=== PATIENT | female | born 1970 | race Caucasian/White ===

== ENCOUNTER → 2021-04-17 16:50 | Outpatient (CLI) | payer BC, SELFPAY | PROVIDERS: Visit Provider Nurse Practitioner | DX: Z20.822 Contact with and (suspected) exposure to COVID-19 (principal) | CPT/HCPCS: C9803; U0003; U0005 ==

== ENCOUNTER 2021-04-18 08:55 | Day surgery (SDC) | payer BC, SELFPAY ==
[2021-04-17 12:54] VITALS: BMI 23.0
[2021-04-18 09:08] VITALS: BP 133/82; PULSE 72; RESP 16; TEMP 36.4; O2SAT 99
[2021-04-18 09:36] VITALS: BP 132/81; PULSE 68; RESP 18; TEMP 36.4; O2SAT 97
[2021-04-18 09:42] VITALS: BP 132/81; PULSE 68; RESP 18; TEMP 36.4; O2SAT 97
== END 2021-04-18 09:42 | disposition home or self-care (01) ==
LOC: OUTP 09:01
PROVIDERS: Visit Provider Ophthalmology
PROC: (CPT 66821; principal; 2021-04-18 09:30)
DX: H26.491 Other secondary cataract, right eye (principal); Z96.1 Presence of intraocular lens; H50.111 Monocular exotropia, right eye; H50.21 Vertical strabismus, right eye; Z88.8 Allergy status to other drugs, medicaments and biological substances
CPT/HCPCS: 66821

== ENCOUNTER 2024-10-14 07:38 | Emergency (ER) | payer OTHER, BC, SELFPAY ==
[2024-10-14] VITALS (12 sets, daily range): BP systolic 132–169; BP diastolic 81–128; PULSE 62–80; RESP 16–17; TEMP 37.2; O2SAT 97–99; BMI 23.8
--- NOTE | 2024-10-14 07:50 | XR_ITS ---
FINAL REPORT CLINICAL HISTORY: post op infx FINDINGS: LEFT HAND Three views were obtained. There is no fracture or dislocation. The joint spaces appear normal. The is prominent soft tissue swelling over the dorsum of the hand measuring 1.6 cm. No gas is seen in the soft tissues. IMPRESSION: Prominent soft tissue swelling without acute bony abnormality. Reviewed, Interpreted and Dictated by Mj Hartley MD Transcribed by Tala Ellis Authenticated and [facility]
--- OUTSIDE RECORDS SUMMARY | 2024-10-14 07:55 | XMS_ITS | Encounter Summary ---
Author Organization [facility] Address [address] [place] [address] Phone [email or web address] [email or web address] Care Team Providers Care Junior Architect Name Role Phone Jose Garcia DO Primary Care Provider Encounter Details Date Type Department Care Team (Late st Contact Info) Description 10/09/2024 Telephone [facility] 1 [facility], [facility] 1 [place] [address] Raven Monroy, RN [address] [address] Social History Tobacco Use Types Packs/Day Years Used Date Smoking Tobacco: Former Smokeless Tobacco: Never Intimate Partner Violence Answer Date R ecorded Insults You Not on file 08/16/2020 Threatens You Not on file 08/16/2020 Screams at You Not on file 08/16/2020 Physically Hurt Not on file 08/16/2020 Intimate Partner Violence Score Not on file 08/16/2020 Depression Answer Date Recorded PHQ Total Score 0 12/25/2023 Stress Answer Date Recorded Stress in your Life Not on file 03/07/2024 Dealing with Stress 3 03/07/2024 Comments No Sex and Gender Information Value Date Recorded Sex Assigned at Not on file Legal Sex Female 7:42 AM CDT Gender Identity Not on file Sexual Orientation Not on file documented as of this encounter Miscellaneous Notes * Telephone Encounter - Raven Monroy - 10/12/2024 1:56 PM CDT Nurse manager retention note for follow up call. 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 Hand/wrist Dx: Pain-M25.539; Idiopathic osteoarthritis-M19.91; Synovitis Lt. Wrist-M65.832 Date of Injury: 11/04/23, reported 12/25/23 Surgery: Yes Post-Op Details: Arthroscopic surgery, no paperwork provided. Current plan of care: TM sent home until released by specialist Surgery date: 10/08/24, Surgeon: Dr. Ramirez, Procedure: Arthroscopy Lt/ wrist Plan of care per specialist: pending paperwork Clinic Provider: Dr. George [phone] F/U Call Notes: TM has ignored phone call messages but did reply to email sent. Adjustor provided Last Specialist Visit: 09/09/24 Next Specialist Visit: 10/21/24 Sports Official Plan/Goals: Call after next specialist visit and as needed Notes requested from specialist's office Continue following plan of care per specialist Conclusion: -E-mail sent to TM with watch caserlegal department manager info. -TM to call back with updates and changes or as needed. -E-mail sent to worker's comp rep regarding: lack of information and contact with TM.. Sports Official Signature: Raven Monroy Date: 10/12/24 documented in this encounter Plan of Treatment Not on file documented as of this encounter Visit Diagnoses Not on filedocumented in this encounter Care Teams Junior Architect Relationship Specialty Start Date End Date Jose Garcia DO [address] [facility] [address] [place] [address] PCP - General Facility Supervisor 02/16/20 documented as of this encounter
--- OUTSIDE RECORDS SUMMARY | 2024-10-14 07:55 | XMS_ITS | Encounter Summary ---
Author Organization [facility] Address [address] [place] [address] Phone [email or web address] [email or web address] Care Team Providers Care Sorter Lumber Straightener Name Role Phone Jose Garcia DO Primary Care Provider Reason for Visit * Reason Onset Date Comments Care Coordination 10/13/2024 Op Note/Dr. Jet burrell Encounter Details Date Type Department Care Team (Late st Contact Info) Description 10/13/2024 Documentation [facility] 1 [facility] 1 [place] [address] Raven Monroy, RN [address] [address] Social History Tobacco Use Types [...] on file documented as of this encounter Progress Notes * Raven Monroy - 10/13/2024 11:09 AM CDT Recvd. Op note+ work status from surgery, from [facility]. Uploaded into [employer]. documented in this encounter Plan of Treatment Not on file documented as of this encounter Visit Diagnoses Not on filedocumented in this encounter Care Teams Sorter Lumber Straightener Relationship Specialty Start Date End Date Jose Garcia DO [address] [facility] [address] [place] [address] PCP - General Manugrapher 02/16/20 documented as of this encounter
--- OUTSIDE RECORDS SUMMARY | 2024-10-14 07:55 | XMS_ITS | Encounter Summary ---
Author Organization [facility] Address [address] [place] [address] Phone [email or web address] [email or web address] Care Team Providers Care Biostatistics Manager Name Role Phone Jose Garcia DO Primary Care Provider Reason for Visit * Reason Onset Date Comments Return to Work / Duty 10/07/2024 CASE UPDAT E/COMMUNICATION- WMLOA-S/P Encounter Details Date Type Department Care Team (Late st Contact Info) Description 10/07/2024 Documentation [facility] [address] [place] [address] [place], [place] [address] [place] [address] Social History Tobacco Use Types Packs/Day Years [...] as of this encounter Progress Notes * Olivia Koroma MA - 10/07/2024 12:42 PM EDT TM on WMLOA beginning 10.08.2024- Stated she was having surgery on LEFT HAND/WRIST Case #[id number] DOI - 12.24.2023 documented in this encounter Plan of Treatment Not on file documented as of this encounter Visit Diagnoses Not on filedocumented in this encounter Care Teams Biostatistics Manager Relationship Specialty Start Date End Date Jose Garcia DO [address] [place] [address] PCP - General New Business Clerk 02/16/20 documented as of this encounter
--- OUTSIDE RECORDS SUMMARY | 2024-10-14 07:55 | XMS_ITS | Continuity of Care Document ---
Author Organization [facility] Address [address] [place] [address] Care Team Providers Care Research Assoc Name Role Phone SHERON MURDOCK Primary Care Provider JENNIFER ANGELO [employer] Supervisor Assessment No assessment recorded. Plan of Treatment Reminders Order Date Submit Date Provider Last Modified By Organization Details Last Modified Time Details Appointments POST OP GLOBAL 2024 09:45A M MARINA EISENBERG MD Not available Not available Not available Lab None recorded . Referral None recorded . Procedures None recorded . Surgeries None recorded . Imaging None recorded . Medication Orders None recorded . Patient TargetsNo targets recorded. Patient InstructionsNo instructions recorded. Reason for Referral None Reported. Problems No Known Problems Procedures Surgical History Date Name Laterality Status Provider Name and Address Organization Details Recorded Time 10/09/19 25 Op Note completed MARINA EISENBERG MD [facility] [place], [address], [facility] 10/08/2024 12:48:37 08/20/19 25 Injection Joint/Bursa, Interm completed MARINA EISENBERG MD [address] [place], [address], [facility] 08/19/2024 09:10:26 02/24/20 24 Injection Joint/Bursa, Interm completed Ney Chambers [facility] 03/23/2024 13:45:00 09/12/19 24 Destruction Premalignant Lesion(s) cancelled [facility] 09/12/2023 12:13:53 09/12/19 24 Destruction BN Lesions cancelled [facility] 09/12/2023 12:16:46 08/27/19 24 EKG completed SHERON MURDOCK , [address] [place], [address], [facility] 08/27/2023 15:32:18 08/02/19 24 Destruction Premalignant Lesion(s) completed [facility] 08/02/2023 14:19:31 08/02/19 24 Destruction BN Lesions completed [facility] 08/02/2023 14:19:07 Imaging Results None recorded. Procedure Notes None recorded. Medical Equipment None Reported. Allergies Allergen ID Allergen Name Allergen Category Reaction Reaction Severity Criticality Documentation Date Start Date Code Code System Note Provider Name and Address Organization Details Recorded Time 352577 Wellbutri n medicatio n hives Not available Not available 08/07/2021 93684 [facility] Medications Name Sig Start Date Stop Date Status Note LastModified by Organization Details LastModified Time medroxypro gesterone 10 mg tablet 07/31 completed Not Available Not Available Not Available prednisone 10 mg tablet TAKE 4 TABLETS BY MOUTH ONCE DAILY FOR 2 DAYS , 3 TABLETS ONCE DAILY FOR 2 DAYS, 2 TABLETS ONCE DAILY FOR 2 DAYS, 1 TABLETS ONCE DAILY FOR 2 DAYS 08/19 completed Not Available Not Available Not Available azithromyc in 250 mg tablet TAKE 2 TABLETS (500 MG) BY ORAL ROUTE ONCE DAILY FOR 1 DAY THEN 1 TABLET (250 MG) BY ORAL ROUTE ONCE DAILY FOR 4 DAYS 10/13 completed Not Available Not Available Not Available hydrocodon e 5 mg-acetami nophen 325 mg tablet TAKE 1 TAB PO Q 6 HRS PRN FOR SEVERE POST SURGICAL PAIN 2024 active Not Available Not Available Not Avai lable tretinoin 0.05 % topical cream APPLY PEA-SIZE D AMOUNT OF CREAM TO AFFECTED AREA OF FACE AT NIGHT 07/31 completed Not Available Not Available Not Available sulfametho xazole 800 mg-trimeth oprim 160 mg tablet TAKE 1 TABLET BY MOUTH TWICE DAILY FOR 5 DAYS 08/07 completed Not Available Not Available Not Available tramadol 50 mg tablet TAKE 1 TABLET BY MOUTH EVERY 4 TO 6 HOURS NEEDED 07/31 completed Not Available Not Available Not Available prednisone 10 mg tablets in a dose pack Take by oral route. 10/13 completed Not Available Not Available Not Available meloxicam 7.5 mg tablet TAKE 1 TAB PO QD WITH FOOD REGARDLE SS OF PAIL LEVEL FOR 1 WEEK, THEN TAKE ONLY PRN FOR PAIN RELIEF THEREAFT ER 2024 active Not Available Not Available Not Avai lable oxycodone- acetaminop hen 5 mg-325 mg tablet Take 1 tablet every 4-6 hours by oral route as needed. 07/31 completed Not Available Not Available Not Available alprazolam 0.5 mg tablet 08/07 completed Not Available Not Available Not Available methotrexa te sodium 2.5 mg tablet TAKE 6 TABLETS BY MOUTH ONCE A WEEK active Not Available Not Available No t Available phenazopyr idine 100 mg tablet TAKE 2 TABLETS BY MOUTH THREE TIMES DAILY AFTER A MEAL FOR 2 DAYS 08/07 completed Not Available Not Available Not Available benzonatat e 100 mg capsule TAKE 1 TO 2 CAPSULES BY MOUTH THREE TIMES DAILY NEEDED FOR COUGH 08/26 completed Not Available Not Available Not Available doxycyclin e monohydrat e 100 mg capsule Take 1 capsule twice a day by oral route. 07/31 completed Not Available Not Available Not Available cephalexin 500 mg capsule TAKE 1 CAPSULE BY MOUTH 4 TIMES DAILY 07/31 completed Not Available Not Available Not Available erythromyc in 5 mg/gram (0.5 %) eye ointment 08/07 completed Not Available Not Available Not Available Neurontin 100 mg capsule TAKE 1 CAPSULE PO QHS FOR 1 WEEK 2024 active Not Available Not Available Not Avai lable folic acid 1 mg tablet TAKE 1 TABLET BY MOUTH ONCE DAILY active Not Available Not Available No t Available hydrocorti sone 2.5 % topical cream APPLY A THIN LAYER TO AFFECTED AREA(S) TWICE DAILY active PRN Not Available Not Available No t Available lisinopril 5 mg tablet TAKE 1 TABLET BY MOUTH ONCE DAILY 04/06 completed not taking Not Available Not Available Not Available clobetasol 0.05 % topical ointment APPLY OINTMENT TOPICALL Y TWICE DAILY TO AFFECTED AREA FOR 2 WEEKS .AVOID FACE, GROIN, OR AXILLA. 03/28 /2024 completed Not Available Not Available Not Available prednisone 5 mg tablets in a dose pack TAKE 6 TABLETS ON DAY 1 THEN TAKE 5 TABLETS ON DAY 2 THEN TAKE 4 TABLETS ON DAY 3 THEN TAKE 3 TABLETS ON DAY 4 THEN TAKE 2 TABLETS ON DAY 5 THEN TAKE 1 TABLET ON DAY 6. TAKE ALL DOSES WITH FOOD. 08/26 completed Not Available Not Available Not Available methylpred nisolone 4 mg tablets in a dose pack DIRECTED 10/13 completed Not Available Not Available Not Available albuterol sulfate HFA 90 mcg/actuat ion aerosol inhaler INHALE 1 TO 2 PUFFS BY MOUTH EVERY 4 TO 6 HOURS NEEDED FOR SHORTNES S OF BREATH OR WHEEZING 08/26 completed Not Available Not Available Not Available ondansetro n 4 mg disintegra ting tablet Place 1 tablet every 8 hours by translin gual route as needed. 07/31 completed Not Available Not Available Not Available diazepam 5 mg tablet TAKE ONE TABLET BY MOUTH ONCE FOR PROCEDUR E 07/31 completed Not Available Not Available Not Available cyclobenza carlos 5 mg tablet Take 1 tablet 3 times a day by oral route. 07/31 completed Not Available Not Available Not Available nitrofuran toin monohydrat e/macrocry stals 100 mg capsule 08/07 completed Not Available Not Available Not Available IBU over the counter prn active Not Available Not Available No t Available ferrous gluconate 324 mg (38 mg iron) tablet 07/31 completed Not Available Not Available Not Available Trelegy Ellipta 100 mcg-62.5 mcg-25 mcg powder for inhalation INHALE 1 PUFF BY MOUTH ONCE DAILY active Not Available Not Available No t Available Plenvu 140 gram-9 gram-5.2 gram powder packs TAKE DIRECTED PER INSTRUCT IONS GIVEN TO YOU FOR YOUR COLONOSC OPY 07/31 completed Not Available Not Available Not Available Vitals None Recorded Social History Question Answer Notes LastModified by Organizat ion Details LastModified Time Tobacco Smoking Status Former Smoker 6 years Preethi Mccollum [facility] 08/07/2021 09:04:25 What Was The Date Of Your Most Recent Tobacco Screening? 10/14/2023 [email or web address] Information not available 10/14/2023 Sex: Female Functional Status None recorded. Mental Status None recorded. Family History Nothing Reported. Medical History No medical history recorded. Gynecological HistoryNo gynecological history recorded. Obstetrics History GPAL:G 0 P 0 0 0 0 Immunizations Vaccine Type Date Status Note Provider Nam e and Address Organization Details Recorded Time Influenza, split virus, quadrivalent, preservative 1 completed Ofelia Barahona [facility] 08/01/2023 16:01:18 Past Encounters Encounter ID Performer Location Encounter Start Date Encounter Closed Date Diagnosis/Indication Diagnosis SNOMED-CT Code Diagnosis ICD10 Code Diagnosis Note [id number] MARINA EISENBERG MD [facility] [address] [place] [address] 09/09/2024 14:34:43 09/09/2024 15:21:35 Synovitis of joint of left wrist [id number] 53871 M65.832 - Plan arthroscop ic synovectom y, excision of pisiform - Send specimen to assess for rheumatoid arthritis - 6-8 weeks recovery, work hardening program potentiall y needed - Surgical consent discussed and given Idiopathic osteoarthritis 666079725 M19.91 - Educated on osteoarthr itis management post-op - Surgery chosen due to failed injections - Continue lifestyle activities post-proce dure [id number] MARINA EISENBERG MD SURGERY SCHEDULE [address] [place] [address] 10/08/2024 08:57:46 10/08/2024 08:58:26 Health Concerns Section Related Observation LastModified by Organization Detai ls LastModified Time None Recorded Concern Status LastModified by Organization Details LastModified Time None Recorded Payers Encounter Date Sequence Insurance Name Policy Number Policy Hammond Covered Member ID Hammond Member ID Guarantor Name 10/08/2024 [employer] Margie Taya Hammond OBGyn Episode No OBEpisode recorded.
--- OUTSIDE RECORDS SUMMARY | 2024-10-14 07:55 | XMS_ITS | Continuity of Care Document ---
Author Organization [facility], ORTHOPEDICS [address] [place] [address] Care Team Providers Care Hay Stacker Name Role Phone COLLETTE SHERON Primary Care Provider JENNIFER ANGELO Yard Manager Assessment Encounter Date Assessment Date Assessment LastModified by Organization Details LastModified Time 09/09/2024 09/09/2024 - 53-year-old female with history of idiopathic osteoarthritis presenting with left wrist pain and swelling. - Symptoms aligned with repetitive wrist movements at work. 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 - MRI indicates inflammatory changes correlating with synovitis. - Imaging: Previous MRI indicated inflammatory changes, no significant tears observed. [email or web address] Not available 09/09/2024 15:16:24 Plan of Treatment Reminders Order Date Submit Date Provider Last Modified By Organization Details Last Modified Time Details Appointments POST OP GLOBAL 2024 09:45A Starla EISENBERG MD Not available Not available Not available Lab None recorded . Referral None recorded . Procedures None recorded . Surgeries None recorded . Imaging None recorded . Medication Orders None recorded . Patient TargetsNo targets recorded. Patient Instructions Encounter Date Encounter Id Patient Instructions Last Modified By Organization Details Last Modified Time 09/09/2024 [id number] - Prepare for wrist arthroscopic surgery. - Rest wrist, avoid repetitive movements. - Follow post-op care instructions strictly. - Report any increase in pain, swelling, or redness immediately. - Maintain normal activities as advised after surgery to avoid stiffness. [email or web address] Not available 09/09/2024 15:16:26 Reason for Referral None Reported. Problems No Known Problems Procedures Surgical History Date Name Laterality Status Provider Name and Address Organization Details Recorded Time 10/09/19 25 Op Note completed MARINA EISENBERG MD [address] [place], [address], [facility] 10/08/2024 12:48:37 08/20/19 25 Injection Joint/Bursa, Interm completed MARINA EISENBERG MD [address] [place], [address], [facility] 08/19/2024 09:10:26 02/24/20 24 Injection Joint/Bursa, Interm completed Ney Chambers [facility] 03/23/2024 13:45:00 09/12/19 24 Destruction Premalignant Lesion(s) cancelled [facility] 09/12/2023 12:13:53 09/12/19 24 Destruction BN Lesions cancelled [facility] 09/12/2023 12:16:46 08/27/19 24 EKG completed SHERON GARCIA DO [address] [place], [address], [facility] 08/27/2023 15:32:18 08/02/19 24 Destruction Premalignant Lesion(s) completed [facility] 08/02/2023 14:19:31 08/02/19 24 Destruction BN Lesions completed [facility] 08/02/2023 14:19:07 Imaging Results None recorded. Procedure Notes None recorded. Medical Equipment None Reported. Allergies Allergen ID Allergen Name Allergen Category Reaction Reaction Severity Criticality Documentation Date Start Date Code Code System Note Provider Name and Address Organization Details Recorded Time 728075 Wellbutri n medicatio n hives Not available Not available 08/07/2021 01810 [facility] Medications Name Sig Start Date Stop [...] 2 WEEKS .AVOID FACE, GROIN, OR AXILLA. 07/31 completed Not Available Not Available Not [...] Not Available Not Available Not Available Vitals Date Recorded Body height Body mass index (BMI) Body weight Provider Name and Address Organization Details Last Updated DateTime 09/09/2024 160.02 cm 23 kg/m2 10896.01 g Kayy Jerzy [facility] 09/09/2024 14:45:41 Social History Question Answer Notes LastModified by Organizat ion Details LastModified Time Tobacco Smoking Status Former Smoker 6 years Preethi Chun [facility] 08/07/2021 09:04:25 What Was The Date [...] Recorded Time Influenza, split virus, quadrivalent, preservative completed Ofeliachelsy Barahona [facility] 08/01/2023 16:01:18 Past Encounters Encounter ID Performer Location Encounter Start Date Encounter Closed Date Diagnosis/Indication Diagnosis SNOMED-CT Code Diagnosis ICD10 Code Diagnosis Note [id number] MARINA EISENBERG MD [facility] [address] [address] 08/19/2024 08:53:38 08/19/2024 09:14:06 Synovitis of joint of left wrist [id number] 42194 M65.832 - Administer corticoste roid injection at pizotrique tral joint. - Consider pisiform removal surgery if symptoms persist. - Monitor response to injection. Idiopathic osteoarthritis 275547102 M19.91 - Symptomati c management . - Monitor response and joint function. [id number] MARINA EISENBERG MD [facility] [address] [place] [address] 09/09/2024 14:34:43 09/09/2024 15:21:35 Synovitis of joint of left wrist 1122927498 95110 M65.832 - Plan arthroscop ic synovectom y, excision of pisiform - Send specimen to assess for rheumatoid arthritis - 6-8 weeks recovery, work hardening program potentiall y needed - Surgical consent discussed and given Idiopathic osteoarthritis 502380273 M19.91 - Educated on osteoarthr itis management post-op - Surgery chosen due to failed injections - Continue lifestyle activities post-proce dure Health Concerns Section Related Observation LastModified by Organization Detai ls LastModified Time None Recorded Concern Status LastModified by Organization Details LastModified Time None Recorded Payers Encounter Date Sequence Insurance Name Policy Number Policy Hammond Covered Member ID Hammond Member ID Guarantor Name 09/09/2024 [facility] Margie Bain Hammond Notes Date Note Type Note Provider Name and Address Organization Details Recorded Time 09/09/2024 text/html Consult requeste d by: [facility] Physician: Dr. Sheron Garcia Hand dominance: RightLocation: Left Wrist Pain level: 0 1 2 3 4 5 6 7 8 9 10 4+ /10 Date of injury: 4Duration: 8.5 months Recent Surgery: NoProcedure:Date of surgery:Surgeon(If Known): In office procedure? Yes- Left Pisotriquetral joint CSI: 08/20/2023- Left wrist csi: 02/24/2024 Previous upper extremity surgery? YesProcedure: Left carpal tunnelApproximate date of surgery: 2001Surgeon (if known): O' Babar Procedure: bilateral thumb trigger finger releasesDate of surgery: 2017Surgeon(If Known): O'Babar Procedure: right ring and long trigger finger releasesDate of surgery: 2013Surgeon(If Known): O'Babar Procedure: Right index finger (unsure of procedure - but does have bone graft)Date of surgery: 2017Surgeon(If Known): O'Babar Have you or an immediate family member ever seen our hand surgeons before? 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 Yes on restrictions-no use of the left handIs this injury associated with a Workers Compensation claim? Yes Patient arrived in: cast splint surgical dressing OTC brace n/a Construction Controller Strength: right: left: W.C. Ms. Hammond is here for a recheck of her lt wrist. She received an injection at her last visit. She says the injection did not help at all, she could not tell any improvement. She says the wrist stays swollen all the time.- The patient is a 53-year-old female presenting with left wrist pain and swelling. - Pain mimics carpal tunnel but is majorly localized to the pisiform area. - Daily activities are limited, with reliance on one-handed function. - Repetitive use and holding the arm down worsen swelling. - Previous shoulder surgeries noted as less debilitating than current wrist issue. - No improvement post corticosteroid injection. - MRI indicated inflammation without significant tears. MARINA EISENBERG MD [address] [place], [address], [facility] 09/09/2024 16:43:54 OBGyn Episode No OBEpisode recorded.
--- OUTSIDE RECORDS SUMMARY | 2024-10-14 07:55 | XMS_ITS | Encounter Summary ---
Author Organization [facility] Address [address] [place] [phone] Phone [email or web address] Care Team Providers Care Cementing Bulk Material Operator Name Role Phone Jose Garcia DO Primary Care Provider Reason for Visit * Reason Onset Date Comments Care Coordination 10/09/2024 Dr. Ramirez re questing surgery but no approval received to date. Encounter Details Date Type Department Care Team (Late st Contact Info) Description 10/09/2024 Telephone [facility] 1 [facility], [facility] 1 [place] [address] Raven Monroy, RN [address] [address] Social History Tobacco Use Types [...] * Telephone Encounter - Raven Monroy - 10/09/2024 12:01 PM CDT Attempted to call TM but no answer, No voicemail. Will send email to contact CM. Will also send email to adjustor for information. documented in this encounter Plan of Treatment Not on file documented as of this encounter Visit Diagnoses Not on filedocumented in this encounter Care Teams Cementing Bulk Material Operator Relationship Specialty Start Date End Date Jose Garcia DO 113[address] [facility] [address] [place] [address] PCP - General Director Of Convention Services 02/16/20 documented as of this encounter
--- OUTSIDE RECORDS SUMMARY | 2024-10-14 07:55 | XMS_ITS | Encounter Summary ---
Author Organization [facility] Address [address] [place] [phone] Phone [email or web address] Care Team Providers Care Rope Coiling Machine Operator Name Role Phone Jose Garcia DO Primary Care Provider Reason for Visit * Reason Onset Date Comments Return to Work / Duty 10/02/2024 CASE UPDAT E/COMMUNICATION- MSIG- A Encounter Details Date Type Department Care Team (Late st Contact Info) Description 10/02/[address] [place] [address] Olivia Koroma MA [address] [place] [address] Social History Tobacco Use Types [...] Progress Notes * Olivia Koroma MA - 10/02/2024 12:25 PM EDT Received APPROVAL from [facility] for WRIST DOI - 12.24.2023 CLAIM # [id number] Adjustor- Chayo Mojica documented in this encounter Plan of Treatment Not on file documented as of this encounter Visit Diagnoses Not on filedocumented in this encounter Care Teams Rope Coiling Machine Operator Relationship Specialty Start Date End Date Jose Garcia DO 113[address] [facility] [address] [place] [address] PCP - General Feeder Driver 02/16/20 documented as of this encounter
--- OUTSIDE RECORDS SUMMARY | 2024-10-14 07:55 | XMS_ITS | Clinical Summary ---
Author Organization [facility] Address [address] [place] [phone] Phone [email or web address] Care Team Providers Care Speech Language Pathologist Name Role Phone Jose Garcia DO Primary Care Provider Allergies Active Allergy Reactions Criticality Noted Date Comments Aspirin GI intolerance 07/17/2018 Bupropion Rash Low 07/17/2018 Medications ibuprofen (MOTRIN) 200 MG tablet Take 200 mg by mouth every 6 (six) hours if needed for mild pain. Active Trelegy Ellipta 100-62.5-25 MCG/ACT aerosol powder Inhale 1 puff. 07/23/2024 Active ibuprofen (IBU) 400 MG tablet over the counter prn Active methotrexate 2.5 MG tablet Take 15 mg by mouth every 7 (seven) days. 08/19/2024 Active folic acid (FOLVITE) 1 MG tablet Take 1 mg by mouth once daily as needed. 08/19/2024 Active Active Problems Problem Noted Date Diagnosed Date Carpal tunnel syndrome 03/07/2015 Overview (10/02/2017): Acute sinusitis 04/09/2011 Overview (10/02/2017): Laboratory exam ordered as p art of routine general medical examination 01/25/2011 Overview (10/02/2017): Contact dermatitis and other eczema due to other specified agent 2010 Overview (10/02/2017): Superficial injury of cornea 08/31/2010 Overview (10/02/2017): Chest pain 08/14/2010 Overview (10/02/2017): Acute cystitis 12/27/2009 Overview (10/02/2017): Pain in joint, pelvic region and thigh 0 Overview (10/02/2017): Routine general medical exam ination at a health care facility 02/22/2009 Overview (10/02/2017): Cough 02/18/2009 Overview (10/02/2017): Encounter for fitness for duty examination 02/17 Overview (10/02/2017): Contusion of scalp, face, or neck, excluding eye s 12/12/2007 Overview (10/02/2017): Other examination of ears and hearing 10/08/2007 Overview (10/02/2017): Urinary tract infection 09/01/2007 Overview (10/02/2017): Superficial foreign body of finger without major open wound and without infection 08/01/2007 Overview (10/02/2017): Pain in or around eye 04/18/2007 Overview (10/02/2017): Trigger thumb, right thumb Encounters Date Type Department Care Team Description 10/13/2024 Documentation [facility] [address] [place] 1 [place] [phone] Raven Monroy, MANPREET 10/09/2024 Telephone [facility] [address] [place] [place] [phone] Raven Monroy, RN 10/09/2024 Telephone [facility] [address] [place] [place] [address] Raven Monroy, MANPREET 10/07/2024 Documentation [facility] [place] [address] [place] 10/02/[address] [place] [address] [place], [place] 08/14/2024 Documentation [place] [address] [facility] [place] [address] Crystal Sarmiento RN 08/13/2024 Documentation [place] [address] [facility] [place] [address] China Lomeli RN 08/13/[address] [place] [address] China Lomeli, RN from Last 3 Months Immunizations Immunization Administration Dates Next Due Td, adsorbed, PF, adult, Lf, unspecified (CVX-19 6) 08/01/2007 Social History Tobacco Use Types Packs/Day Years Used Date Smoking Tobacco: Former Smokeless Tobacco: Never Tobacco Cessation:Counseling Given: Not Answered Intimate Partner Violence Answer Date R ecorded [...] on file Sexual Orientation Not on file Last Filed Vital Signs Vital Sign Reading Time Taken Comments Blood Pressure 116/74 09/10/2024 8:37 AM EDT Pulse 66 09/10/2024 8:37 AM EDT Temperature 36.7 C (98.1 F) 04/07/2024 8:38 AM EST Respiratory Rate 18 09/10/2024 8:37 AM EDT Oxygen Saturation 97% 09/10/2024 8:37 AM EDT Inhaled Oxygen Concentration - - Weight 61.2 kg (135 lb) 12/25/2023 1:06 PM EDT Height 160 cm (5' 3 ) 12/25/2023 1:06 PM EDT Body Mass Index 23.91 12/25/2023 1:06 PM EDT Plan of Treatment Health Maintenance Due Date Last Done Comments Dental Cleaning/Exam 1968 HIV Screening 1968 Hepatitis C Screening 1968 Cervical Cancer Screening 1984 Annual Preventive Exam 1986 Hep B Infection Screening - Triple Screen 1986 Hepatitis B Immunization (1 of 3 - 19+ 3-dose series) 11/04/1987 Tetanus Diphtheria and Pertu ssis Immunization (1 - Tdap) 11/04/1987 Breast Cancer Screening 1998 Colorectal Cancer Screening 1998 Zoster Immunization (1 of 2) 2018 Covid-19 Immunization (1 - 2 25 season) 2024 Influenza Immunization (Seas on Ended) 2025 02/21/2021 HIB Immunization Aged Out No longer e ligible based on patient's age to complete this topic HPV Immunization Aged Out No longer e ligible based on patient's age to complete this topic Hepatitis A Immunization Aged Out No longer eligible based on patient's age to complete this topic Pneumococcal: Ped (0 to 5 Yr s) and At-Risk Member (6 to 64 Yrs) Aged Out No longer e ligible based on patient's age to complete this topic Polio Immunization Aged Out No longer eligible based on patient's age to complete this topic Insurance OPT OUT NO COPAY NB Care Teams Speech Language Pathologist Relationship Specialty Start Date End Date Jose Garcia DO [address] [place] [address] PCP - General Senior Teller 02/16/20
--- NOTE | 2024-10-14 08:03 | ED_ITS ---
Discharge Plan Disposition Patient Disposition: Home, Self-Care Prescriptions Prescriptions: No Action No Known Home Medications Referrals Follow up/Referrals: Provider,Referral, [Primary Care Provider, Medical] - See instructions Clinical Impressions Clinical Impression: Cellulitis of hand, left, Post-operative infection Print Language Print Language: Scottish Discharge ED Provider: Sarah Wang General Adult HPI General Chief complaint: PAIN Stated complaint: surg last , left hand swollen Time Seen by Provider: 10/14/24 07:40 History of Present Illness HPI narrative: Patient is a 53-year-old female presenting today with what she believes to be a postoperative infection. Had a hand surgery done by Dr. Leal with [facility] on October 08. She is unable to definitively articulate what the surgery was for but largely for pain and swelling that she had been having in her hand them for symptomatic relief. States that for several days after the surgery she did not require any pain medicine she did not have significant swelling or redness or any other symptoms but yesterday things suddenly blew up. States that her hand became suddenly and significantly more swollen red and severely painful to the point where the pain medication that she had not been taking was not effective either. Also last night she had shaking chills and felt awful. She took Tylenol last night because of the symptoms. She denies any other significant past medical history or antibiotic allergies. Related Data Home Medications ?Medication ?Instructions ?Recorded ?Confirmed No Known Home Medications 04/17/2104/05 Allergies Allergy/AdvReac Type Severity Reaction Status Date / Time bupropion (From Wellbutrin) Allergy Verified 04/17/21 12:58 [facility] Disclaimer: The information contained in this section may have been updated after the patient was seen, as this information can be updated by other users. Social History Smoking Status: Never smoker alcohol intake: never current occupational status: employed Travel in the last 8 weeks?: Inside the [place] housing: house caffeine: Yes Have you lived/traveled outside US in past 30 days?: No Contact w/someone who lives/traveled outside US past 30 days?: No Exposure to someone with infectious disease in past 14 days?: No Do you have a fever (greater than 100.4 F or 38 C)?: No Have you tested positive for COVID-19?: No Exposed to someone with COVID-19 in past 14 days?: No Do you have a sore throat?: No Do you have a cough?: No Do you have any weakness?: No Do you have any diarrhea?: No Are you experiencing any unusual bleeding?: No Do you have any muscle aches/pain?: No Do you have any abdominal pain?: No Are you experiencing loss of taste or smell?: No Other Medical History Have you received the Flu Vaccine for this season: Yes Have you received the Pneumonia Vaccine: No ROS Obtained: Yes All systems reviewed & no additional complaints except as documented Physical Exam General General appearance: alert Respiratory Respiratory exam: Present normal lung sounds bilaterally Cardiovascular Cardiovascular exam: Present regular rate Extremities Exam Extremities exam: Present other (Patient has very warm hand and distal forearm at a proportion to the rest of her arm and the other hand, difficulty with extension of the fingers and significant swelling and erythema over the dorsal aspect of the hand and forearm there is an area of a pustule and focal fluctuance around one of the ) Neurological Exam Neurological exam: Present alert Medical Decision Making Medical Records Screening: Per USPSTF and CDC recommendations, given the prevalence of disease in our region, it is our hospital?s policy to screen for HIV and viral Hepatitis for all patients aged 18 and over and those with ongoing risk factors. Jamel Inquiry Pt receiving controlled substance: No Vital Signs: 10/14/24 07:45 10/14/24 07:55 10/14/24 08:00 Temperature 98.9 F Temperature Source Oral Pulse Rate 80 77 Pulse Rate [Right] 77 Respiratory Rate 17 Blood Pressure 145/104 H 169/97 H Blood Pressure [Right Arm] 145/104 H Blood Pressure Mean 127 Blood Pressure Mean [Right Arm] 117 Blood Pressure Source Blood Pressure Source [Right Arm] Automatic Cuff Blood Pressure Position Blood Pressure Position [Right Arm] Supine 02 Sat by Pulse Oximetry 97 97 97 Oxygen Delivery Method Room Air 10/14/24 08:04 10/14/24 08:19 10/14/24 08:30 Temperature 98.9 F Temperature Source Oral Pulse Rate 77 77 76 Pulse Rate [Right] Respiratory Rate 17 Blood Pressure 145/104 H 158/96 H 146/128 H Blood Pressure [Right Arm] Blood Pressure Mean Blood Pressure Mean [Right Arm] Blood Pressure Source Automatic Cuff Blood Pressure Source [Right Arm] Blood Pressure Position Supine Blood Pressure Position [Right Arm] 02 Sat by Pulse Oximetry 97 97 97 Oxygen Delivery Method Room Air 10/14/24 08:50 10/14/24 09:30 10/14/24 10:00 Temperature Temperature Source Pulse Rate 63 62 65 Pulse Rate [Right] Respiratory Rate Blood Pressure 165/91 H 140/89 132/81 Blood Pressure [Right Arm] Blood Pressure Mean Blood Pressure Mean [Right Arm] Blood Pressure Source Blood Pressure Source [Right Arm] Blood Pressure Position Blood Pressure Position [Right Arm] 02 Sat by Pulse Oximetry 99 98 97 Oxygen Delivery Method Lab Data Lab results reviewed: Yes I reviewed the patient's lab results. Lab Results 10/14/24 08:18: WBC 9.9, RBC 4.46, Hgb 10.2 L, Hct 34.1 L, MCV 76.5 L, MCH 22.9 L, MCHC 29.9 L, RDW 18.4 H, Plt Count 437 H, MPV 9.6, Neut % (Auto) 76.3, Lymph % (Auto) 8.7 L, Randall % (Auto) 12.1 H, Eos % (Auto) 2.0, Baso % (Auto) 0.6, Neut # (Auto) 7.5, Lymph # (Auto) 0.9, Randall # (Auto) 1.2 H, Eos # (Auto) 0.2, Baso # (Auto) 0.1, ESR 23, Sodium 137, Potassium 4.2, Chloride 107, Carbon Dioxide 27, Anion Gap 7.2, BUN 21 H, Creatinine 0.70, Estimated Creat Clear 85, Estimated GFR 87, Est GFR ( Amer) 105, Glucose 101 H, Lactate 0.5 L, Calcium 9.5, Total Bilirubin 0.4, AST 30, ALT 17, Alkaline Phosphatase 75, C-Reactive Protein 41.7 H, Total Protein 8.1, Albumin 4.5, Globulin 3.6 H, Albumin/Globulin Ratio 1.3 10/14/24 08:21: HCV Ab FARAZ w/Rflx PCR Qn Negative 10/14/24 08:18 10/14/24 08:18 Orders (Tests/Meds): ED MEDICATIONS Discontinued Medications Generic Name Dose Route Start Last Admin Trade Name Freq PRN Reason Stop Dose Admin Lactated Ringer's 1,000 mls @ 999 mls/hr 10/14/24 08:00 10/14/24 08:07 Lactated Ringer's 1000 Ml Bag IV 10/14/24 09:00 999 mls/hr .Q1H1M CHRISTINA Administration Vancomycin HCl 1,000 mg/ 250 mls @ 125 mls/hr 10/14/24 08:30 10/14/24 09:05 Sodium Chloride IV 10/14/24 10:29 125 mls/hr ONCE ONE Administration Dalbavancin 1,500 mg/ Dextrose 250 mls @ 500 mls/hr 10/14/24 10:15 IV 10/14/24 10:16 ONCE ONE Ketorolac Tromethamine 15 mg 10/14/24 09:00 10/14/24 09:02 Ketorolac 30mg/Ml Vial IV 10/14/24 09:01 15 mg ONCE ONE Administration Miscellaneous 1 each 10/14/24 08:15 10/14/24 09:15 Vancomycin Consult Request NOTAPPLIC 11/13/24 08:14 1 each CONSULT PHARMACY CHRISTINA Administration Morphine Sulfate 4 mg 10/14/24 07:50 10/14/24 08:07 Morphine 4mg/Ml Syringe IV 10/14/24 07:51 4 mg ONCE ONE Administration Ondansetron HCl 4 mg 10/14/24 07:50 10/14/24 08:08 Ondansetron 4mg/2ml Vial IV 10/14/24 07:51 4 mg ONCE ONE Administration ORDERS Category Date Time Status Hand XR left minimum 3 views [XR hand LT min 3V] Stat Exams 10/14/24 07:50 Taken POCUS Point of Care (ER Only) Stat Exams 10/14/24 07:50 Completed CBC w/Auto Diff [Complete Blood Count Auto Diff] Stat Lab 10/14/24 08:18 Completed CMP [Comprehensive Metabolic Panel] Stat Lab 10/14/24 08:18 Completed CRP [C-Reactive Protein] Stat Lab 10/14/24 08:18 Completed ESR [Erythrocyte Sedimentation Rate] Stat Lab 10/14/24 08:18 Completed HIV Combo Stat Lab 10/14/24 08:21 Received Hepatitis C Ab Qual. W/ RFX Stat Lab 10/14/24 08:21 Completed Lactic Acid Stat Lab 10/14/24 08:18 Completed Blood Culture Stat Micro 10/14/24 08:21 Received Medical Decision Narrative: Patient is a 53-year-old female presents today with what appears to be a postoperative infection. She has significant warmth erythema swelling that happened relatively suddenly yesterday and has severe pain associated with this as well. There does appear to be a localized area of a pustule and focal swelling and tenderness around one of the sutures which could have been the source of infection. I will remove this and if there is any purulent drainage we will send this for culture. Ultrasound done at the bedside does not demonstrate a localize drainable fluid collection. IV antibiotics will be initiated on this patient. I will also discussed the case with her surgical team for management decisions. Reassessment 10:31 AM. Patient clinically is still very well-appearing. No evidence of sepsis. Blood test have returned and they are nonspecific inflammatory marker elevations no significant leukocytosis. She does have a thrombocytosis again consistent with acute phase reactant elevation and acute inflammatory process. Given the fact that I want her to be closely followed and monitored to resolution I did not feel that oral antibiotics would be indicated in this patient I wanted to keep her in the hospital on IV antibiotics. I spoke with her surgeon Dr. Ramirez and discussed with him the ultrasound findings and physical exam findings and the patient's clinical status and he agreed that the patient did not need emergent definitive surgical intervention at the moment without a localize drainable fluid collection with an obvious superficial soft tissue fluid collection that is tracking consistent with cellulitis and not a septic joint. However after discussing the case with our hospital medicine physician they were uncomfortable keeping the patient here given the fact that the surgeon is not in house and there may be difficulties with transfer if the patient's clinical status were to worsen given capacity issues across the state at the moment. Subsequently I spoke to the patient and gave her an alternative of IV dalbavancin which has been shown to be noninferior to prolonged course of IV vancomycin in the hospital. I do believe that this is an equivalent antibiotic therapy and could illuminate the need for hospitalization. I again spoke with her surgeon who is comfortable with this plan and actually made an appointment with her to be seen this afternoon in clinic. Overall everybody is in agreement with this plan and patient was discharged after dalbavancin was administered. Procedures Miscellaneous Procedure Procedure Performed: Limited soft tissue ultrasound Indication: Soft tissue pain swelling and redness Identified structures: Location: Dorsal aspect of the left hand Findings: Extensive soft tissue fluid collection that are tracking along tissue planes but no localized drainable fluid collection Impression: As above findings are consistent with cellulitis without obvious abscess Images were saved to permanent archive The study was technically adequate Soft Tissue CPT Codes: CPT Neck: 87229-05 CPT Upper extremity: 94605-98 CPT Axilla: 72659-30 CPT Chest wall: 05221-71 CPT Breast: 01804-53-IB/LT (complete), 14341-40-OE/LT (limited), CPT Upper Back: 66235-70 CPT Lower Back: 02544-08 CPT Abdominal Wall: 69117-57 CPT Pelvic Wall: 76081-03 CPT Lower Extremity: 52223-44 CPT Other Soft Tissue: 78772-19 This study was performed by me, and I personally interpreted all images/videos. Based on my clinical judgement, these images were adequate and did not necessitate further imaging. Critical Care Critical Care Time Critical Care Time: Yes Attestation: On 10/14/24, the high probability of a clinically significant, sudden or life threatening deterioration of the following system(s) required my full and direct attention, intervention and personal management. The time I documented below is in addition to time spent performing reported procedures but includes the following listed in this critical care notation. Total Time Total Critical Care Time: 35
[2024-10-14] MEDS: MORPHINE 4MG/ML SYRINGE 4 MG IV (08:07)
[2024-10-14] MEDS: LACTATED RINGERS 1000ML 1,000 ML 999 ML IV (08:07)
[2024-10-14] MEDS: ONDANSETRON 4MG/2ML VIAL 4 MG IV (08:08)
[2024-10-14 08:28] LABS: Basophils # 0.1 K/mm3 (0-0.2); Basophils % 0.6 % (0.1-2.0); Eosinophils # 0.2 Kmm3 (0.0-0.4); Hematocrit 34.1 % (37.0-47.0); Hemoglobin 10.2 g/dL (12.2-16.2); Immature Granulocytes # 0.03 10^3uL; Immature Granulocytes % 0.3 %; Lymphocytes # 0.9 K/mm3 (0.7-4.5); Lymphocytes % 8.7 % (10-50); Mean Corpuscular HGB Conc 29.9 g/dL (31.8-35.4); Mean Corpuscular Hemoglobin 22.9 pg (27.0-31.2); Mean Corpuscular Volume 76.5 fl (81-99); Mean Platelet Volume 9.6 fl (7.4-10.4); Monocytes # 1.2 K/mm3 (0.1-1.0); Monocytes % 12.1 % (1.7-9.3); Neutrophils # 7.5 K/mm3 (1.8-7.8); Neutrophils % 76.3 % (37.0-80.0); Nucleated Red Blood Cells # 0 10^3/uL; Nucleated Red Blood Cells % 0 %; Platelet Count 437 K/mm3 (142-424); Red Blood Count 4.46 M/mm3 (4.20-5.40); Red Cell Distribution Width 18.4 % (11.5-17.5); Red Cell Distribution Width-SD 48.3 fL; White Blood Count 9.9 K/mm3 (4.8-10.8)
[2024-10-14 08:39] LABS: Albumin Level 4.5 g/dl (3.5-5.0); Chloride 107 mmol/L (98-107)
[2024-10-14 08:40] LABS: Potassium 4.2 mmoL/L (3.5-5.1); Sodium 137 mmol/L (136-145)
[2024-10-14 08:42] LABS: Alanine Aminotransferase 17 U/L (12-78); Anion Gap 7.2 mEq/L (5-15); Aspartate Amino Transferase 30 U/L (14-36); Bilirubin,Total 0.4 mg/dl (0.2-1.3); Blood Urea Nitrogen 21 mg/dl (7-17); Carbon Dioxide 27 mmol/L (22.0-30.0); Creatinine Clearance Estimated 85 mL/min (50-200); Estimated Glomerular Filt Rate 87 ml/min (>60); GFR (African American) 105 ML/MIN (>60)
[2024-10-14 08:43] LABS: Albumin/Globulin Ratio 1.3 (1.1-1.8); Alkaline Phosphatase 75 U/L (38-126); Calcium 9.5 mg/dl (8.4-10.2); Globulin 3.6 g/dL (1.3-3.2); Glucose 101 mg/dl (74-100); Total Protein,Serum 8.1 g/dl (6.3-8.2)
[2024-10-14 08:44] LABS: Lactic Acid 0.5 mmol/L (0.7-2.1)
[2024-10-14 08:48] LABS: C-Reactive Protein 41.7 mg/L (0-4)
[2024-10-14] MEDS: KETOROLAC 30MG/ML VIAL 15 MG IV (09:02)
--- NOTE | 2024-10-14 09:04 | PC.NURSE ---
Called [facility] per Dr Wang to speak with Dr Leal or whoever was front load trash truck driver for him due to pt having a post op infection. [facility] has me on hold at this time checking to see if he is available. Dr Wang is spaeking with Dr Leal at this time
[2024-10-14] MEDS: VANCOMYCIN HCL 1,000 MG in 0.9 % SODIUM CHLORIDE 250 ML 125 MG IV (09:05)
--- NOTE | 2024-10-14 09:11 | PC.NURSE ---
Dr Leal was comfortable after speaking with Dr Wang to keep her here for the IV antibiotics
[2024-10-14] MEDS: VANCOMYCIN CONSULT REQUEST 1 EACH NOTAPPLIC (09:15)
[2024-10-14 09:17] LABS: Erythrocyte Sedimentation Rate 23 mm/hr (0-30)
--- NOTE | 2024-10-14 09:33 | PC.NURSE ---
Rounded on patient, no needs voiced at this time.
--- NOTE | 2024-10-14 09:33 | PC.NURSE ---
declined admitting the pt.
--- NOTE | 2024-10-14 09:35 | PC.NURSE ---
Pts vancomycin was paused per
--- NOTE | 2024-10-14 09:37 | PC.NURSE ---
Called [facility] back per Dr Wang to speak with Dr Leal again about this pt. They were putting a call out to him and they will call us back.
[2024-10-14 09:50] LABS: Hepatitis C Ab Qual. W/ RFX NEGATIVE (Negative)
--- NOTE | 2024-10-14 10:12 | PC.NURSE ---
on phone with awa gold
[2024-10-14] MEDS: DALBAVANCIN HCL 1,500 MG in DEXTROSE 5 % IN WATER 250 ML 500 MG IV (10:32)
[2024-10-15 04:58] LABS: HIV Combo NEGATIVE (Negative)
== END 2024-10-14 11:32 | disposition home or self-care (01) ==
PROVIDERS: Emergency Provider Student in an Organized Health Care Education/Training Program
DX: L03.114 Cellulitis of left upper limb (principal); T81.49XA Infection following a procedure, other surgical site, initial encounter
CPT/HCPCS: 73130; 80053; 80074; 83605; 85025; 85651; 86140; 87040; 87389; 96361; 96365; 96366; 96375; 99285; J0875; J1885; J2270; J2405; J3370; J7050; J7060; J7120